=== PATIENT | male | born 1990 | race Caucasian/White ===

== ENCOUNTER 2019-12-04 11:34 | Emergency (ER) | payer BC ==
[~2019-12-04 11:34] MED LIST: AMOXICILLIN 50500 MG PO; GUAIFEN/CODEIN120 ML PO; LEXAPRO 10MG10 MG PO; MUCINEX100 MG PO; PREDNISONE20 M1 PO; RT ALBUTEROL CC18 GM IH; SINUS & ALLERG120 MG PO; ZITHROMAX 250M250 MG PO
[2019-12-04 12:24] VITALS: BP 101/65
== END 2019-12-04 12:22 | disposition home or self-care (01) ==
LOC: ED 11:34
DX: S61.012A Laceration without foreign body of left thumb without damage to nail, initial encounter (principal); Z23 Encounter for immunization; W26.0XXA Contact with knife, initial encounter; Y92.009 Unspecified place in unspecified non-institutional (private) residence as the place of occurrence of the external cause
CPT/HCPCS: 90715

== ENCOUNTER → 2020-04-25 | Outpatient (CLI) | payer BC | LOC: LAB 07:38 | DX: R05 Cough (principal); R51 Headache; R53.83 Other fatigue; Z20.828 Contact with and (suspected) exposure to other viral communicable diseases ==

== ENCOUNTER → 2021-11-12 | Outpatient (CLI) | payer OTHER ==
[2021-11-12 17:05] LABS: BASO # 0.05 K/mm3 (0.02-0.10); EOS # 0.13 K/mm3 (0.04-0.40); EOS % 1.3 % (0.0-4.0); HEMATOCRIT 44.8 % (42.0-52.0); HEMOGLOBIN 15.1 g/dL (13.5-18.0); LYMPH# 3.42 K/mm3 (1.50-4.00); MEAN CELL VOLUME 88 fl (78-100); MEAN CORPUSCULAR HEMOGLOBIN 30 pg (27-31); MEAN CORPUSCULAR HGB CONC 34 g/dL (33-37); MONO # 0.72 K/mm3 (0.20-0.80); NEU # 5.75 K/mm3 (1.40-6.50); PLATELET COUNT 291 K/mm3 (130-400); RED CELL DISTRIBUTION WIDTH 12.2 % (11.5-14.5); WHITE BLOOD COUNT 10.1 K/mm3 (4.8-10.8)
[2021-11-12 17:07] LABS: ALBUMIN 4.2 g/dL (3.5-5.0)
[2021-11-12 17:08] LABS: CALCIUM 9.3 mg/dL (8.3-10.5)
[2021-11-12 17:09] LABS: TOTAL PROTEIN 7.2 g/dL (6.4-8.3)
[2021-11-12 17:11] LABS: TOTAL BILIRUBIN 0.2 mg/dL (0.2-1.2)
== END ==
LOC: LAB 16:44
PROVIDERS: Family Medicine
DX: Z00.00 Encounter for general adult medical examination without abnormal findings (principal); E78.5 Hyperlipidemia, unspecified; F32.A Depression, unspecified; F41.9 Anxiety disorder, unspecified; E66.01 Morbid (severe) obesity due to excess calories; Z72.0 Tobacco use

== ENCOUNTER → 2022-09-10 | Outpatient (CLI) | payer OTHER ==
[2022-09-10 07:30] LABS: ALBUMIN 4.3 g/dL (3.5-5.0); POTASSIUM 3.9 mmol/L (3.5-5.1)
[2022-09-10 07:31] LABS: CALCIUM 9.2 mg/dL (8.3-10.5)
[2022-09-10 07:32] LABS: BASO # 0.03 K/mm3 (0.02-0.10); EOS % 2.7 % (0.0-4.0); HEMATOCRIT 46.5 % (42.0-52.0); HEMOGLOBIN 15.3 g/dL (13.5-18.0); MEAN CELL VOLUME 89 fl (78-100); MEAN CORPUSCULAR HEMOGLOBIN 29 pg (27-31); MEAN CORPUSCULAR HGB CONC 33 g/dL (33-37); MEAN PLATELET VOLUME 10.1 fl (7.4-10.4); MONO # 0.59 K/mm3 (0.20-0.80); NEU # 3.93 K/mm3 (1.40-6.50); PLATELET COUNT 285 K/mm3 (130-400); RED BLOOD COUNT 5.24 M/mm3 (4.20-5.60); RED CELL DISTRIBUTION WIDTH 12.9 % (11.5-14.5); WHITE BLOOD COUNT 7.4 K/mm3 (4.8-10.8)
[2022-09-10 07:33] LABS: TOTAL PROTEIN 7.1 g/dL (6.4-8.3)
[2022-09-10 07:34] LABS: TOTAL BILIRUBIN 0.5 mg/dL (0.2-1.2)
[2022-09-12 00:02] LABS: TESTOSTERONE 240 ng/dL (240-871)
== END ==
LOC: LAB 07:09
PROVIDERS: Family Medicine
DX: Z00.00 Encounter for general adult medical examination without abnormal findings (principal); E78.5 Hyperlipidemia, unspecified; E55.9 Vitamin D deficiency, unspecified; R79.89 Other specified abnormal findings of blood chemistry

== ENCOUNTER 2023-03-03 08:00 | Outpatient (RCR) | payer OTHER | END 2023-04-02 | disposition home or self-care (01) | LOC: OT | DX: G56.01 Carpal tunnel syndrome, right upper limb (principal) ==

== ENCOUNTER 2023-04-03 08:00 | Outpatient (RCR) | payer OTHER | END 2023-05-02 | disposition home or self-care (01) | LOC: OT | DX: G56.01 Carpal tunnel syndrome, right upper limb (principal); G56.21 Lesion of ulnar nerve, right upper limb ==

== ENCOUNTER 2024-06-01 14:19 | Emergency (ER) | payer OTHER, BC ==
[~2024-06-01] VITALS: Ht 162.6 cm; Wt 109.0 kg
[2024-06-01] MEDS ORDERED: DEXTROAMPH SACC30 MG PO (14:28)
[2024-06-01] MEDS ORDERED: ALPRAZOLAM0.5 MG PO (14:28)
[2024-06-01] MEDS ORDERED: FLUOXETINE40 MG PO (14:29)
[2024-06-01] MEDS ORDERED: PRILOSEC 20MG20 MG PO (14:29)
[2024-06-01] MEDS ORDERED: NORCO 325 MG-7.1 TA1 PO (14:29)
[2024-06-01] MEDS ORDERED: NS 1,000 ML IV SCH (15:30)
[2024-06-01] MEDS ORDERED: NS 1,000 ML IV ONE (15:30)
[2024-06-01 15:41] LABS: BASO # 0.02 K/mm3 (0.02-0.10); EOS # 0.12 K/mm3 (0.04-0.40); EOS % 0.7 % (0.0-4.0); HEMATOCRIT 48.7 % (42.0-52.0); HEMOGLOBIN 15.8 g/dL (13.5-18.0); LYMPH# 3.35 K/mm3 (1.50-4.00); MEAN CELL VOLUME 90 fl (78-100); MEAN CORPUSCULAR HEMOGLOBIN 29 pg (27-31); MEAN CORPUSCULAR HGB CONC 32 g/dL (33-37); MEAN PLATELET VOLUME 9.6 fl (7.4-10.4); MONO # 1.34 K/mm3 (0.20-0.80); NEU # 11.13 K/mm3 (1.40-6.50); PLATELET COUNT 339 K/mm3 (130-400); RED BLOOD COUNT 5.44 M/mm3 (4.20-5.60); RED CELL DISTRIBUTION WIDTH 13.1 % (11.5-14.5)
[2024-06-01 15:49] LABS: SODIUM 139 mmol/L (136-145)
[2024-06-01 15:50] LABS: ALBUMIN 4.2 g/dL (3.5-5.0); CALCIUM 9.4 mg/dL (8.3-10.5)
[2024-06-01 15:52] LABS: TOTAL PROTEIN 7.1 g/dL (6.4-8.3)
[2024-06-01 15:53] LABS: CARBON DIOXIDE 25 mmol/L (22-29); D-DIMER 0.26 mg/L FEU (0.15-0.50); GLUCOSE 126 mg/dL (75-110)
[2024-06-01 15:54] LABS: TOTAL BILIRUBIN 0.2 mg/dL (0.2-1.2)
[2024-06-01 15:57] LABS: AST-SGOT 25 U/L (5-34)
[2024-06-01 16:00] LABS: ALT/SGPT 44 U/L (0-55)
[2024-06-01 16:06] LABS: TROPONIN-I < 0.030 ng/mL (0.00-0.033)
[2024-06-01] MEDS ORDERED: LORazepam 2 MG/ML VIAL IV ONE (16:15)
[2024-06-01] MEDS ORDERED: Propranolol 20 MG TAB PO ONE (16:45)
[2024-06-01 17:06] VITALS: BP 150/98
== END 2024-06-01 17:02 | disposition home or self-care (01) ==
LOC: ED 14:19
PROVIDERS: Family Medicine
DX: M96.89 Other intraoperative and postprocedural complications and disorders of the musculoskeletal system (principal); R65.10 Systemic inflammatory response syndrome (SIRS) of non-infectious origin without acute organ dysfunction; F41.9 Anxiety disorder, unspecified; F90.9 Attention-deficit hyperactivity disorder, unspecified type; Z79.899 Other long term (current) drug therapy
CPT/HCPCS: J2060; J7030

== ENCOUNTER → 2024-06-07 | Outpatient (CLI) | payer OTHER, BC ==
[~2024-06-07] MED LIST changes: +ALPRAZOLAM0.5 MG PO; +DEXTROAMPH SACC30 MG PO; +FLUOXETINE40 MG PO; +NORCO 325 MG-7.1 TA1 PO; +PRILOSEC 20MG20 MG PO
[2024-06-07 16:03] LABS: BASO # 0.02 K/mm3 (0.02-0.10); EOS % 2.2 % (0.0-4.0); LYMPH# 3.56 K/mm3 (1.50-4.00); MEAN CELL VOLUME 89 fl (78-100); MEAN CORPUSCULAR HEMOGLOBIN 30 pg (27-31); MEAN CORPUSCULAR HGB CONC 33 g/dL (33-37); MEAN PLATELET VOLUME 9.6 fl (7.4-10.4); MONO # 1.11 K/mm3 (0.20-0.80); NEU # 8.35 K/mm3 (1.40-6.50); PLATELET COUNT 338 K/mm3 (130-400); RED BLOOD COUNT 5.75 M/mm3 (4.20-5.60); RED CELL DISTRIBUTION WIDTH 12.8 % (11.5-14.5); WHITE BLOOD COUNT 13.4 K/mm3 (4.8-10.8)
[2024-06-07 16:10] LABS: ALBUMIN 4.3 g/dL (3.5-5.0); SODIUM 137 mmol/L (136-145)
[2024-06-07 16:12] LABS: CALCIUM 9.5 mg/dL (8.3-10.5)
[2024-06-07 16:13] LABS: GLUCOSE 106 mg/dL (75-110); TOTAL PROTEIN 7.6 g/dL (6.4-8.3)
[2024-06-07 16:14] LABS: CARBON DIOXIDE 23 mmol/L (22-29)
[2024-06-07 16:15] LABS: TOTAL BILIRUBIN 0.3 mg/dL (0.2-1.2)
[2024-06-07 16:18] LABS: AST-SGOT 18 U/L (5-34)
[2024-06-07 16:19] LABS: ALT/SGPT 30 U/L (0-55)
[2024-06-07 16:38] LABS: TROPONIN-I < 0.030 ng/mL (0.00-0.033)
[2024-06-07 16:39] LABS: D-DIMER 0.31 mg/L FEU (0.15-0.50)
== END ==
LOC: LAB 15:49
PROVIDERS: Nurse Practitioner Family
DX: I15.9 Secondary hypertension, unspecified (principal); R06.02 Shortness of breath